=== PATIENT | male | born 2000 | race Caucasian/White ===

== ENCOUNTER 2018-04-27 08:04 | Emergency (ER) | payer OTHER ==
[~2018-04-27] VITALS: Ht 182.9 cm; Wt 68.0 kg
[2018-04-27 08:10] VITALS: BP 134/58
--- NOTE | 2018-04-27 08:29 | PHYS DOC ---
Past Medical History Past Medical History: Anxiety, Depression Past Surgical History: No Surgical History Alcohol Use: None Drug Use: None Adult General Chief Complaint Chief Complaint: LACERATION/AVULSION HPI HPI Patient is a 17 year old who presents to the emergency room with complaints of a laceration to the anterior aspect of his lower right forearm. Patient states he is at work opening a box with a preparing box tender and he was accidentally cut. He states that his tetanus shot is up-to-date. He denies any numbness, tingling, or decreased range of motion of his wrist or fingers. Patient currently reports pain is a 3 out of 10 on the pain scale, he denies need for any pain medication. Review of Systems Review of Systems Constitutional: Denies fever or chills [] Musculoskeletal: Denies back pain or joint pain [] Integument: Denies rash; reports laceration to the anterior aspect of right forearm Neurologic: Denies headache, focal weakness or sensory changes [] All other systems were reviewed and found to be within normal limits, except as documented in this note. Current Medications Current Medications Current Medications Medications (Trade) Dose Ordered Sig/Von Start Time Stop Time Status Last Admin Dose Admin Lidocaine HCl (Xylocaine-Mpf 1% 2ml Vial) 6 ml 1X ONCE 04/27/18 08:30 04/27/18 08:31 DC 04/27/18 08:52 6 ML Allergies Allergies Allergies Coded Allergies Type Severity Reaction Last Updated Verified No Known Drug Allergies 09/16/15 No Physical Exam Physical Exam Constitutional: Well developed, well nourished, no acute distress, non-toxic appearance. [] HENT: Normocephalic, atraumatic, bilateral external ears normal, oropharynx moist, no oral exudates, nose normal. [] Eyes: Normal Lungs & Thorax: Respirations even and unlabored Skin: Warm, dry, no erythema, no rash; 9 cm laceration to anterior right forearm , no active bleeding. [] Extremities: No tenderness, no cyanosis, no clubbing, ROM intact, no edema. [] Neurologic: Alert and oriented X 3, normal motor function, normal sensory function, no focal deficits noted. [] Psychologic: Affect normal, judgement normal, mood normal. [] Current Patient Data Vital Signs Vital Signs Date Time Temp Pulse Resp B/P (MAP) Pulse Ox O2 Delivery O2 Flow Rate FiO2 04/27/18 08:10 98.6 88 18 134/58 (83) 96 Room Air 98.6 EKG EKG [] Radiology/Procedures Radiology/Procedures [] Course & Med Decision Making Course & Med Decision Making Pertinent Labs and Imaging studies reviewed. (See chart for details) [] Dragon Disclaimer Dragon Disclaimer This electronic medical record was generated, in whole or in part, using a voice recognition dictation system. Departure Departure Impression: Primary Impression: Laceration of right forearm without complication Disposition: HOME, SELF-CARE Condition: STABLE Referrals: UNKNOWN PCP NAME (PCP) Patient Instructions: Laceration Care, Adult, [id number] Additional Instructions: Keep area clean and dry. Have the sutures removed in 10 days, follow up with work comp physician in 1-2 days for wound recheck. Return to the ER if your symptoms worsen. Laceration/Wound Repair Laceration/Wound Repair : Wound Location: upper extremity (right forearm) Wound's Depth, Shape: superficial Wound Length (cm): 9 Wound Explored: clean Irrigated w/ Saline (ccs): 100 Betadine Prep?: No Anesthesia: 1% Lidocaine Wound Debrided: minimal Wound Repaired With: sutures Suture Size/Type: 4:0 (ethilon) Number of Sutures: 16 Layer Closure?: No Sterile Dressing Applied?: No Splint Applied?: No Problem Qualifiers Primary Impression: Laceration of right forearm without complication Encounter type: initial encounter Qualified Codes: S51.811A - Laceration without foreign body of right forearm, initial encounter MARIA GUADALUPE TONEY APRN Apr 27, 2018 08:28
[2018-04-27] MEDS ORDERED: LIDOCAINE 1% PF 2 ML VIAL. INJ ONE (08:30)
== END 2018-04-27 09:45 | disposition home or self-care (01) ==
LOC: ER 08:04
DX: S51.811A Laceration without foreign body of right forearm, initial encounter (principal); W27.8XXA Contact with other nonpowered hand tool, initial encounter; Y93.89 Activity, other specified; Y92.69 Other specified industrial and construction area as the place of occurrence of the external cause; Y99.0 Civilian activity done for income or pay
CPT/HCPCS: 12004; 99283-25